=== PATIENT | male | born 1975 | race Hispanic/Latino ===

== ENCOUNTER → 2024-03-08 | Outpatient (REF) | payer OTHER | LOC: CT 14:42 | PROVIDERS: ATTEND Family Medicine | DX: R42 Dizziness and giddiness (principal); S06.0XAA Concussion with loss of consciousness status unknown, initial encounter; S00.83XA Contusion of other part of head, initial encounter; W01.198A Fall on same level from slipping, tripping and stumbling with subsequent striking against other object, initial encounter; Z02.6 Encounter for examination for insurance purposes | CPT/HCPCS: 70450 ==

== ENCOUNTER → 2024-04-02 | Outpatient (REF) | payer OTHER | LOC: CT 14:06 | PROVIDERS: ATTEND Family Medicine | DX: S16.1XXD Strain of muscle, fascia and tendon at neck level, subsequent encounter (principal); S19.9XXD Unspecified injury of neck, subsequent encounter; W01.198D Fall on same level from slipping, tripping and stumbling with subsequent striking against other object, subsequent encounter; Z02.6 Encounter for examination for insurance purposes | CPT/HCPCS: 72125; 72128 ==